=== PATIENT | female | born 1940 | race Caucasian/White ===

== ENCOUNTER 2017-12-23 10:13 | Inpatient (IN) | payer MEDICARE ==
[~2017-12-23] VITALS: Ht 165.1 cm; Wt 93.0 kg
[2017-12-23 10:44] LABS: BASOPHILS % 0.4 % (0.0-1.0); EOSINOPHILS # (AUTO) 0.1 (0.0-0.4); EOSINOPHILS % 1.2 % (0.0-6.0); HEMATOCRIT 42.8 % (34.2-44.1); HEMOGLOBIN 14.2 g/dL (12.0-16.0); LYMPHOCYTES # (AUTO) 1.5 (1.0-3.2); LYMPHOCYTES % 16.1 % (18.0-39.1); MEAN CORPUSCULAR HGB CONC 33.2 g/dL (31-35); MEAN CORPUSCULAR VOLUME 90.3 fL (81-99); MONOCYTES # (AUTO) 0.6 (0.2-0.8); MONOCYTES % 6.5 % (4.4-11.3); NEUTROPHILS # (AUTO) 7.2 (2.1-6.9); NEUTROPHILS % 75.4 % (38.7-80.0); PLATELET COUNT 221 x10e3/uL (140-360); RED BLOOD COUNT 4.74 x10e6/uL (3.6-5.1); RED CELL DISTRIBUTION WIDTH 12.8 % (11.7-14.4)
--- NOTE | 2017-12-23 11:02 | Diagnostic Imaging Report ---
PROCEDURE: X-RAY CHEST, TWO VIEWS COMPARISON: None. INDICATIONS: WEAKNESS IN LEGS, SHORTNESS OF BREATH, PNEUMONIA FINDINGS: The lungs are well-inflated. There are patchy consolidations in the lingula and right midlung. No pleural effusion or pneumothorax. Normal heart size. Tortuosity and atherosclerotic calcification of the thoracic aorta. No overt pulmonary edema. No acute osseous abnormality. CONCLUSION: Patchy consolidation suggestive of multifocal pneumonia involving the right midlung and lingula. Followup chest radiograph in 8 weeks is suggested to document resolution. Dictated by: Bin Eller M.D. on 12/23/2017 at 11:05 Electronically approved by: Bin Eller M.D. on 12/23/2017 at 11:05
[2017-12-23 11:05] LABS: B-TYPE NATRIURETIC PEPTIDE2 54.5 pg/mL (0-100)
[2017-12-23 11:08] LABS: ALANINE AMINOTRANSFERASE 18 IU/L (0-55); ALBUMIN 3.1 g/dL (3.5-5.0); ALBUMIN/GLOBULIN RATIO 0.7 (0.8-2.0); ALKALINE PHOSPHATASE 54 IU/L (40-150); ANION GAP 13.6 mmol/L (8-16); BLOOD UREA NITROGEN 15 mg/dL (7-26); BUN/CREATININE RATIO 13 (6-25); CALCIUM 9.6 mg/dL (8.4-10.2); CARBON DIOXIDE 30 mmol/L (22-29); CHLORIDE 97 mmol/L (98-107); CREATINE KINASE 32 IU/L (29-168); EST GLOMERULAR FILTRATION RATE 44 ML/MIN (60-); GLUCOSE 160 mg/dL (74-118); POTASSIUM 3.6 mmol/L (3.5-5.1); SODIUM 137 mmol/L (136-145)
[2017-12-23] MEDS ORDERED: CEFTRIAXONE SOD 1 GM VIAL IV SCH (12:30)
--- OUTSIDE RECORDS SUMMARY | 2017-12-23 12:40 | XMS REPORT ---
Author [facility] Address Unknown Phone Unavailable Care Team Providers Care Observer [employer] Name Role Phone DIANA PHILIP Unavailable Unavailable Problems This patient has no known problems. Allergies, Adverse Reactions, Alerts This patient has no known allergies or adverse reactions. Medications This patient has no known medications. Results Test Description Test Time Test Comments Text Results Atomic Results Result Comments CHEST 2 VIEWS [place] [id number] Patient Name: ROMINA REDDY MR #: [id number] : 1940 Age/Sex: 77/F Req # : [id number] Adm Physician: Ordered by: DIANA PHILIP MD Report #: [id number] Location: ER Room/Bed: Procedure: [id number] DX/CHEST 2 VIEWS Exam Date: 12/23/17 Exam Time : 1050 REPORT STATUS: Signed PROCEDURE: X-RAY CHEST, TWO VIEWS COMPARISON: None. INDICATIONS: WEAKNESS IN LEGS, SHORTNESS OF BREATH, PNEUMONIA FINDINGS: The lungs are well-inflated. There are patchy consolidations in the lingula and right midlung. No pleural effusion or pneumothorax. Normal heart size. Tortuosity and atherosclerotic calcification of the thoracic aorta. No overt pulmonary edema. No acute osseous abnormality. CONCLUSION: Patchy consolidation suggestive of multifocal pneumonia involving the right midlung and lingula. Followup chest radiograph in 8 weeks is suggested to document resolution. Dictated by: Ramnaa Eller M.D. on 12/23/2017 at 11:05 Electronically approved by: Ramana Eller M.D. on 12/23/2017 at 11:05 Dictated By : RAMANA ELLER MD [id number] Transcribed By: DONAL on 12/23/17 1105 COPY TO: DIANA PHILIP MD
[2017-12-23] MEDS: AZITHROMYCIN 500MG/SOD CHL 0.9% 250ML BAG IV SCH (13:10)
[2017-12-23] MEDS: SODIUM CHLORIDE 0.9% 1000ML 1,000 ML IV SCH ×2 (13:10→21:21)
--- NOTE | 2017-12-23 15:20 | Diagnostic Imaging Report ---
PROCEDURE:CT CHEST WITH CONTRAST COMPARISON:None. INDICATIONS:SHORTNESS OF BREATH. PNEUMONIA. R/O PE TECHNIQUE: Axial CT images of the chest were obtained after the intravenous administration of 63 cc of nonionic contrast. Coronal and sagittal reformations were made available for review. RADIATION DOSE: Total DLP: 474.34 mGy*cm Estimated effective dose: (DLP x 0.014 x size factor) mSv FINDINGS: Lungs: Multifocal infiltrates or tingling in the left lower lobe consistent with pneumonia. There is baseline pulmonary hyperinflation consistent with small airways disease. No intraluminal filling defects in the airways. Pleura:No pleural effusion or pneumothorax. Mediastinum:No filling defects in pulmonary arteries. The aorta is normal in diameter without evidence of dissection. The heart is mildly enlarged. No pericardial effusion. A small hiatal hernia is present. Lymph nodes: No enlarged axillary or supraclavicular lymph nodes. Mediastinal and hilar lymph nodes are mildly prominent, measuring up to 2.2 x 2.0 cm. Upper abdomen: No mass in the visualized portions. Musculoskeletal:There is height loss of the T6 vertebral body of approximately 33%. Spinal canal is widely patent. There are no lytic or blastic lesions. CONCLUSION: 1. Multifocal pulmonary infiltrates consistent with pneumonia. Prominent mediastinal lymph nodes are likely reactive. 2. No evidence of pulmonary embolus or aortic dissection. 3. Age-indeterminate compression fracture of T6. 4. Small hiatal hernia. Dictated by: Suleman Cabrera M.D. on 12/23/2017 at 15:22 Electronically approved by: Suleman Cabrera M.D. on 12/23/2017 at 15:22
[2017-12-23] MEDS ORDERED: HYDRALAZINE HCL 20 MG/ML VIAL IV PRN (17:30)
[2017-12-23] MEDS: ENOXAPARIN SOD INJ 40 MG/0.4 ML SYR SC SCH (17:45)
[2017-12-23] MEDS: BENZONATATE 100 MG CAP PO SCH ×2 (17:45→20:10)
[2017-12-23 18:00] VITALS: BP 135/60
[2017-12-23] MEDS ORDERED: VITAMIN B COMP1 EACH PO (18:45)
[2017-12-23] MEDS ORDERED: FLUTICASONE PRO16 GM (18:45)
[2017-12-23] MEDS ORDERED: VENLAFAXINE HCL75 MG PO (18:45)
[2017-12-23] MEDS ORDERED: AMLODIPINE BESYL5 MG PO (18:45)
[2017-12-23] MEDS ORDERED: GABAPENTIN100 MG PO (18:45)
[2017-12-23] MEDS ORDERED: MONTELUKAST SOD10 MG PO (18:45)
[2017-12-23] MEDS ORDERED: CARVEDILOL12.5 MG PO (18:45)
[2017-12-23] MEDS ORDERED: ERGOCALCIF8000 UNIT/ PO (18:45)
[2017-12-23] MEDS ORDERED: VENTOLIN HFA18 GM (18:45)
[2017-12-23 19:13] VITALS: BP 135/60
[2017-12-23 19:35] VITALS: BP 136/59
[2017-12-23 21:43] VITALS: BP 136/59
[2017-12-24] VITALS (7 sets, daily range): BP systolic 116–142; BP diastolic 53–69
[2017-12-24] MEDS: ACETAMINOPHEN 325 MG TAB PO PRN (00:22)
[2017-12-24 07:49] LABS: ANION GAP 10.8 mmol/L (8-16); BLOOD UREA NITROGEN 13 mg/dL (7-26); BUN/CREATININE RATIO 15 (6-25); CALCIUM 9.2 mg/dL (8.4-10.2); CARBON DIOXIDE 31 mmol/L (22-29); CHLORIDE 104 mmol/L (98-107); CHOL/HDL RATIO 4.7 (3.0-3.6); CHOLESTEROL 173 MD/DL (0-199); CREATININE, SERUM 0.87 mg/dL (0.57-1.11); EST GLOMERULAR FILTRATION RATE > 60 ML/MIN (60-); GLUCOSE 121 mg/dL (74-118); HDL CHOLESTEROL 37 MG/DL (40-60); LDL CHOLESTEROL 116 MG/DL (60-130); POTASSIUM 3.8 mmol/L (3.5-5.1); SODIUM 142 mmol/L (136-145); TRIGLYCERIDES 101 MG/DL (0-149)
[2017-12-24] MEDS: BENZONATATE 100 MG CAP PO SCH (08:55)
[2017-12-24] MEDS ORDERED: CEFTRIAXONE SOD 1 GM VIAL IV SCH (09:00)
[2017-12-24] MEDS: AZITHROMYCIN 500MG/SOD CHL 0.9% 250ML BAG IV SCH (11:36)
[2017-12-24] MEDS ORDERED: ALBUTEROL/IPRATROPIUM 3 ML NEB NEB SCH (14:00)
[2017-12-24] MEDS: ACETAMINOPHEN/CODEINE 300MG - 30MG TAB PO PRN ×2 (14:16→21:46)
[2017-12-24] MEDS: PIPER-TAZ 3.375 GM 100 ML IV SCH ×2 (14:50→21:09)
[2017-12-24] MEDS: ALBUTEROL/IPRATROPIUM 3 ML NEB NEB SCH ×2 (15:00→22:25)
[2017-12-24] MEDS: ENOXAPARIN SOD INJ 40 MG/0.4 ML SYR SC SCH (16:20)
[2017-12-24] MEDS ORDERED: SODIUM CHLORIDE 0.9% 250ML 250 ML ONE (17:42)
[2017-12-24] MEDS: GABAPENTIN 100 MG CAP PO SCH (20:40)
[2017-12-24] MEDS: MONTELUKAST SODIUM 10 MG TAB PO SCH (20:41)
[2017-12-24] MEDS: BUDESONIDE 0.5MG/2 ML NEB INH SCH (22:25)
[2017-12-25] VITALS (9 sets, daily range): BP systolic 116–188; BP diastolic 52–82
[2017-12-25] MEDS: ACETAMINOPHEN 325 MG TAB PO PRN (04:09)
[2017-12-25] MEDS: PIPER-TAZ 3.375 GM 100 ML IV SCH ×3 (05:30→21:22)
[2017-12-25] MEDS: ALBUTEROL/IPRATROPIUM 3 ML NEB NEB SCH ×3 (06:40→23:25)
[2017-12-25] MEDS: BUDESONIDE 0.5MG/2 ML NEB INH SCH ×2 (07:00→23:25)
[2017-12-25] MEDS: AMLODIPINE BESYLATE 5 MG TAB PO SCH (08:16)
[2017-12-25] MEDS: VENLAFAXINE HCL 75 MG TAB PO SCH (08:16)
[2017-12-25] MEDS: AZITHROMYCIN 500MG/SOD CHL 0.9% 250ML BAG IV SCH (11:53)
--- NOTE | 2017-12-25 15:19 | Consultation ---
DATE OF CONSULTATION: December 24, 2017 PULMONARY CONSULTATION REASON FOR CONSULT: Recurrent episodes of pneumonia. HPI: Ms. Irving is a 77-year-old female who presented to the emergency room with the complaints of shortness of breath, cough, and wheezing. She reports that these episodes have been recurrent and have happened a couple of times in last 2 to 3 months. She denies any history of asthma. She is a lifelong nonsmoker. She reports that she feels better with nebulizer, but the effect does not last long. She denies any allergies as well. REVIEW OF SYSTEMS GENERAL: Denies any fever or chills. HEAD: Denies any head trauma. ENT: Denies any earache. CVS: Denies any chest pain. RESPIRATORY: Shortness of breath. GI: Denies any nausea or vomiting. The rest of the review of systems is negative except as in HPI. PAST MEDICAL HISTORY: Hypertension. PAST SURGICAL HISTORY: Hysterectomy and appendectomy. FAMILY AND SOCIAL HISTORY: She does not smoke, does not drink. PHYSICAL EXAMINATION VITALS: Temperature 99.8, pulse of 83, blood pressure 125/73, respiratory rate of 18, O2 sat 94%, and T-max of 100.7. HEENT: Head atraumatic and normocephalic. Pupils are reactive. NECK: Supple. CHEST: Reduced air entry, crackles bilaterally. Occasional wheezing. HEART: S1, S2 audible. No murmurs, gallops, or rub. ABDOMEN: Soft, nontender, and nondistended. EXTREMITIES: No clubbing, cyanosis, or edema. NEUROLOGIC: Awake and alert. LABS: White count of 9000, hemoglobin 14.2, and platelets 221,000. Chemistries within normal limits. Creatinine was 1.2 yesterday, it is 0.87 today. Bicarbonate was 30 yesterday, it is [address] of the chest: I have reviewed the images. It is showing evidence of multifocal infiltrates and an area of consolidation in the left lower lobe. ASSESSMENT: Ms. Irving is a 77-year-old female with recurrent episodes of cough and wheezing and has been on Symbicort in the past, also has tried Breo. I am unsure how frequently and how regularly she has used that. There is no previous CT to compare. This CT shows evidence of multiple areas of consolidation, small. There is a larger area of consolidation on the base. At this point, it seems like it is pneumonia; however, if previously she had similar episode, then it can be organizing pneumonia. PLAN: At this point, I will start the patient on IV Zosyn and nebulizer treatment with DuoNeb q.8 h. I will continue the patient on azithromycin. Also start the patient on Pulmicort nebs as well. On discharge, she will need following and a repeat CAT scan to see if the areas of consolidation are resolving or not. If it is not, then she may need a steroid course for organizing pneumonia. At this point, I will hold off on the steroids unless she starts having worsening wheezing and cough. Then, I will start the patient on steroid to treat the reactive airways. Thank you for this consult. Job#: [id number] CF
[2017-12-25] MEDS: ENOXAPARIN SOD INJ 40 MG/0.4 ML SYR SC SCH (17:13)
[2017-12-25] MEDS: MONTELUKAST SODIUM 10 MG TAB PO SCH (21:22)
[2017-12-25] MEDS: GABAPENTIN 100 MG CAP PO SCH (21:22)
[2017-12-26] VITALS: BP 140/66
[2017-12-26] MEDS: ACETAMINOPHEN 325 MG TAB PO PRN (00:35)
[2017-12-26] MEDS: PIPER-TAZ 3.375 GM 100 ML IV SCH (05:25)
[2017-12-26 05:30] VITALS: BP 136/67
[2017-12-26] MEDS: BUDESONIDE 0.5MG/2 ML NEB INH SCH (07:10)
[2017-12-26] MEDS: ALBUTEROL/IPRATROPIUM 3 ML NEB NEB SCH (07:10)
[2017-12-26 07:53] VITALS: BP 152/82
[2017-12-26] MEDS: AMLODIPINE BESYLATE 5 MG TAB PO SCH (08:10)
[2017-12-26] MEDS: VENLAFAXINE HCL 75 MG TAB PO SCH (08:10)
[2017-12-26 08:57] VITALS: BP 152/82
[2017-12-26 11:50] VITALS: BP 151/67
[2017-12-26] MEDS ORDERED: DOXYCYCLINE HY100 MG PO (11:56)
[2017-12-26] MEDS ORDERED: AUGMENTIN 875-1 EACH PO (11:57)
--- NOTE | 2017-12-26 14:53 | Discharge Summary ---
PRIMARY CARE DOCTOR: Susan Le MD, with [facility]ani[facility]ity[facility]. FINAL DIAGNOSIS: Multifocal pneumonia. SECONDARY DIAGNOSES 1. Hypoxia, resolving. 2. Possible obesity-hypoventilation syndrome. 3. Acute renal failure, resolved. 4. Hypertension, stable. 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 PROCEDURES/STUDIES PERFORMED: Chest CT. HISTORY: Per H and P. HOSPITAL COURSE: The patient initially was put on Rocephin and azithromycin. Subsequently, the Rocephin was switched to Zosyn. The patient responded better. Hypoxia is resolving. She does not qualify for home oxygen. She received Lovenox for DVT prophylaxis. The patient will need outpatient pulmonary evaluation. This was conveyed to her primary care doctor. Given her Levaquin allergy, the patient will be going home on Augmentin and doxycycline for another week. The patient was seen and examined today. It took 32 minutes total to discharge this patient. CONDITION ON DISCHARGE: Improved. DISCHARGE MEDICATIONS: Please see medication reconciliation form. MARTHA JUÁREZ M.D. Job#: [id number] cc:SUSAN LE M.D.
== END 2017-12-26 13:00 | disposition home or self-care (01) | DRG 194 ==
LOC: ER 10:13 → ERHOLD 12:38 → MED/SURG3 15:15
PROVIDERS: ADMIT Internal Medicine; ATTEND Internal Medicine
DX: J18.9 Pneumonia, unspecified organism (principal); N17.9 Acute kidney failure, unspecified; E66.2 Morbid (severe) obesity with alveolar hypoventilation; R09.02 Hypoxemia; Z68.34 Body mass index [BMI] 34.0-34.9, adult; I10 Essential (primary) hypertension; J45.909 Unspecified asthma, uncomplicated
CPT/HCPCS: 36415; 71046; 71260; 80048; 80053; 80061; 82550; 82553; 83605; 83880; 84484; 85025; 85379; 87040; 93005; 94640; 99284; J0456; J0696; J1650; J2543; J7030; J7050

== ENCOUNTER 2020-02-01 13:11 | Emergency (ER) | payer MEDICARE ==
[~2020-02-01] VITALS: Ht 165.1 cm; Wt 93.0 kg
[~2020-02-01 13:11] MED LIST: AMLODIPINE BESYL5 MG PO; AUGMENTIN 875-1 EACH PO; CARVEDILOL12.5 MG PO; DOXYCYCLINE HY100 MG PO; ERGOCALCIF8000 UNIT/ PO; FLUTICASONE PRO16 GM; GABAPENTIN100 MG PO; MONTELUKAST SOD10 MG PO; VENLAFAXINE HCL75 MG PO; VENTOLIN HFA18 GM; VITAMIN B COMP1 EACH PO
[2020-02-01 14:16] LABS: BASOPHILS # (AUTO) 0.1 (0.0-0.1); BASOPHILS % 1.3 % (0.0-1.0); EOSINOPHILS # (AUTO) 0.2 (0.0-0.4); EOSINOPHILS % 2.7 % (0.0-6.0); HEMATOCRIT 37.7 % (34.2-44.1); HEMOGLOBIN 10.6 g/dL (12.0-16.0); LYMPHOCYTES # (AUTO) 2.3 (1.0-3.2); LYMPHOCYTES % 36.3 % (18.0-39.1); MEAN CORPUSCULAR HEMOGLOBIN 22.4 pg (28-32); MEAN CORPUSCULAR HGB CONC 28.1 g/dL (31-35); MEAN CORPUSCULAR VOLUME 79.7 fL (81-99); MONOCYTES # (AUTO) 0.6 (0.2-0.8); MONOCYTES % 8.8 % (4.4-11.3); NEUTROPHILS # (AUTO) 3.1 (2.1-6.9); NEUTROPHILS % 50.6 % (38.7-80.0); PLATELET COUNT 403 x10e3/uL (140-360); RED BLOOD COUNT 4.73 x10e6/uL (3.6-5.1); RED CELL DISTRIBUTION WIDTH 18.5 % (11.7-14.4)
[2020-02-01 14:28] LABS: CLARITY,URINE CLOUDY (CLEAR); COLOR,URINE YELLOW (YELLOW); KETONES,URINE NEGATIVE (NEGATIVE); LEUKOCYTE ESTERASE ,URINE SMALL (NEGATIVE); NITRITE,URINE NEGATIVE (NEGATIVE); PROTEIN,URINE DIPSTICK NEGATIVE (NEGATIVE); URINE UROBILINOGEN 0.2 mg/dL (0.2 - 1)
[2020-02-01 14:29] LABS: BILIRUBIN,URINE NEGATIVE (NEGATIVE)
[2020-02-01 14:32] LABS: ALBUMIN 3.8 g/dL (3.5-5.0); ANION GAP 14.6 mmol/L (8-16); CALCIUM 9.4 mg/dL (8.4-10.2); CREATININE, SERUM 1.61 mg/dL (0.57-1.11); POTASSIUM 3.6 mmol/L (3.5-5.1)
[2020-02-01 14:43] LABS: BACTERIA,URINE MANY /HPF; WBC,URINE (MAN) >50 /HPF (0-5)
[2020-02-01 14:44] LABS: EPITHELIAL CELLS,URINE MODERATE /LPF
[2020-02-01] MEDS ORDERED: ULTRAM50 MG PO (16:58)
--- NOTE | 2020-02-19 15:07 | Emergency Department Note ---
History of Present Illnes History of Present Illness Chief Complaint: General Medicine Complaints History of Present Illness This is a 79 year old female sent to the ED by primary care physician for anemia, patient denies any source of bleeding, denies any complaints. Historian: Patient Arrival Mode: Car Onset (how long ago): unknown Severity: mild Onset quality: unable to specify Progression: unable to specify Chronicity: recurrent Past Medical/Family History Physician Review I have reviewed the patient's past medical and family history. Any updates have been documented here. Past Medical History Recent Fever: No Clinical Suspicion of Infectio: No New/Unexplained Change in Ment: No Past Medical History: Hypertension Other Medical History: NEUROPATHY Past Surgical History: Hysterectomy, T&A Other Surgery: BLADDER MESH REMOVAL Social History Smoking Cessation: Former smoker Counseling Performed: No Alcohol Use: None Any Illegal Drug Use: No TB Exposure/Symptoms: No Physically hurt or threatened: No Other Last Tetanus: UNK Last Flu: Y Last Pneumovax: Y Review of Systems Review of Systems Constitutional: Reports no symptoms EENTM: Reports no symptoms Cardiovascular: Reports no symptoms Respiratory: Reports no symptoms Gastrointestinal: Reports no symptoms Genitourinary: Reports no symptoms Musculoskeletal: Reports no symptoms Integumentary: Reports no symptoms Neurological: Reports no symptoms Psychological: Reports no symptoms Endocrine: Reports no symptoms Hematological/Lymphatic: Reports no symptoms Physical Exam Related Data Allergies: Coded Allergies: levofloxacin (Verified Allergy, Severe, 12/23/17) sulfamethoxazole (Verified Allergy, Severe, 12/23/17) trimethoprim (Verified Allergy, Severe, 12/23/17) Triage Vital Signs Vital Signs Date Time Temp Pulse Resp B/P (MAP) Pulse Ox O2 Delivery O2 Flow Rate FiO2 02/01/20 13:14 98.7 80 16 134/70 100 Vital signs reviewed: Yes Physical Exam CONSTITUTIONAL Constitutional: Present well-developed, Present well-nourished HENT HENT: Present normocephalic, Present atraumatic, Present oropharynx clear/moist, Present nose normal HENT L/R: Present left ext ear normal, Present right ext ear normal EYES Eyes: Reports PERRL, Reports conjunctivae normal NECK Neck: Present ROM normal PULMONARY Pulmonary: Present effort normal, Present breath sounds normal CARDIOVASCULAR Cardiovascular: Present regular rhythm, Present heart sounds normal, Present capillary refill normal, Present normal rate GASTROINTESTINAL Abdominal: Present soft, Present nontender, Present bowel sounds normal GENITOURINARY Genitourinary: Present exam deferred SKIN Skin: Present warm, Present dry MUSCULOSKELETAL Musculoskeletal: Present ROM normal NEUROLOGICAL Neurological: Present alert, Present oriented x 3, Present no gross motor or sensory deficits PSYCHOLOGICAL Psychological: Present mood/affect normal, Present judgement normal Results Laboratory Result Diagram: 02/01/20 1320 02/01/20 1320 Lab results reviewed: Yes Assessment & Plan Medical Decision Making MDM 79-year-old well-appearing female arrived to the ED at request of primary care physician for anemia and need transfusion. Patient's hemoglobin in the emergency department reviewed at around 10.0, no indications for transfusion at this time. Patient otherwise hemodynamically stable recommended outpatient follow-up with hematology to do iron studies and find other causes of low hemoglobin. Assessment & Plan Final Impression: (1) Anemia Depart Disposition: HOME, SELF-CARE Last Vital Signs Date Time Temp Pulse Resp B/P (MAP) Pulse Ox O2 Delivery O2 Flow Rate FiO2 02/01/20 13:14 98.7 80 16 134/70 100 Home Meds Active Scripts Tramadol Hcl (ULTRAM) 50 Mg Tablet, 50 MG PO Q6HR PRN for Mild Pain (1-3) or Fever>100.8, #10 TAB Prov:JEREMIAH LANCE, 02/01/20 Reported Medications Amoxicillin/Potassium Clav (AUGMENTIN 875-125 TABLET) 1 Each Tablet, 875 MG PO BID for 7 Days, #30 TAB 12/26/17 Doxycycline Hyclate (DOXYCYCLINE HYCLATE) 100 Mg Capsule, 100 MG PO BID for 7 Days, CAP 12/26/17 Fluticasone Propionate (FLUTICASONE PROPIONATE) 16 Gm [place].susp, NA DAILY 12/23/17 Albuterol Sulfate (VENTOLIN HFA) 18 Gm Hfa.aer.ad, NA Q6H PRN for wheezing; shortness of breath 2 puffs into the lungs every 6 hours as needed 12/23/17 Vitamin B Complex (VITAMIN B COMPLEX) 1 Each Capsule, PO DAILY 12/23/17 Venlafaxine Hcl (VENLAFAXINE HCL) 75 Mg Tab, 75 MG PO DAILY, #30 TAB 12/23/17 Montelukast Sodium (MONTELUKAST SODIUM) 10 Mg Tablet, 10 MG PO HS, #30 TAB 12/23/17 Gabapentin (GABAPENTIN) 100 Mg Capsule, 200 MG PO HS 12/23/17 Ergocalciferol (Vitamin D2) (ERGOCALCIFEROL) 8,000 Unit/1 Ml Drops, 07143 UNITS PO ONCE WEEKLY 12/23/17 Carvedilol (CARVEDILOL) 12.5 Mg Tablet, 25 MG PO BID, #60 TAB 12/23/17 Amlodipine Besylate (AMLODIPINE BESYLATE) 5 Mg Tablet, 5 MG PO DAILY, #30 TAB 12/23/17 JEREMIAH LANCE, Feb 19, 2020 15:07
== END 2020-02-01 17:17 | disposition home or self-care (01) ==
LOC: ER 13:21
DX: D64.9 Anemia, unspecified (principal); I10 Essential (primary) hypertension; G62.9 Polyneuropathy, unspecified
CPT/HCPCS: 36415; 80053; 81001; 85025; 99282

== ENCOUNTER 2024-10-29 12:09 | Inpatient (IN) | payer MEDICARE ==
[~2024-10-29] VITALS: Ht 165.1 cm; Wt 88.5 kg
[2024-10-29] VITALS (9 sets, daily range): BP systolic 136–162; BP diastolic 70–85; PULSE 55–65; RESP 16–20; TEMP 97.2–98.2; O2SAT 91–97
[~2024-10-29 12:09] MED LIST changes: +ULTRAM50 MG PO
[2024-10-29 12:42] LABS: BASOPHILS # (AUTO) 0.1 (0.0-0.1); BASOPHILS % 1.1 % (0.0-1.0); EOSINOPHILS # (AUTO) 0.3 (0.0-0.4); EOSINOPHILS % 5.7 % (0.0-6.0); HEMATOCRIT 30.9 % (34.2-44.1); HEMOGLOBIN 9.1 g/dL (12.0-16.0); LYMPHOCYTES # (AUTO) 1.4 (1.0-3.2); LYMPHOCYTES % 24.2 % (18.0-39.1); MEAN CORPUSCULAR HEMOGLOBIN 25.7 pg (28-32); MEAN CORPUSCULAR HGB CONC 29.4 g/dL (31-35); MEAN CORPUSCULAR VOLUME 87.3 fL (81-99); MONOCYTES # (AUTO) 0.6 (0.2-0.8); MONOCYTES % 10.1 % (4.4-11.3); NEUTROPHILS # (AUTO) 3.3 (2.1-6.9); NEUTROPHILS % 58.5 % (38.7-80.0); PLATELET COUNT 290 x10e3/uL (140-360); RED BLOOD COUNT 3.54 x10e6/uL (3.6-5.1); RED CELL DISTRIBUTION WIDTH 14.6 % (11.7-14.4); WHITE BLOOD COUNT 5.57 x10e3/uL (4.8-10.8)
[2024-10-29 13:05] LABS: ALBUMIN 3.4 g/dL (3.5-5.0); ANION GAP 14.1 mmol/L (8-16); BILIRUBIN,TOTAL 0.5 mg/dL (0.2-1.2); CALCIUM 8.9 mg/dL (8.4-10.2); CREATININE, SERUM 1.11 mg/dL (0.57-1.11); POTASSIUM 4.1 mmol/L (3.5-5.1); TOTAL PROTEIN 6.7 g/dL (6.5-8.1)
[2024-10-29 13:08] LABS: INR 1.51
[2024-10-29 13:09] LABS: CORONAVIRUS COVID-19 AG NEGATIVE (NEGATIVE); INFLUENZA A AG NEGATIVE (NEGATIVE); INFLUENZA B AG NEGATIVE (NEGATIVE); PARTIAL THROMBOPLASTIN TIME 33.9 seconds (23.8-35.5)
[2024-10-29 13:11] LABS: TROPONIN I 0.011 ng/mL (0-0.300)
[2024-10-29] MEDS ORDERED: IOPAMIDOL 370 MG/ML 100 ML INFUS..BTL INJ ONE (13:23)
[2024-10-29] MEDS: SODIUM CHLORIDE 0.9% 1000ML 1,000 ML IV STA (13:30)
[2024-10-29] MEDS ORDERED: Morphine 2mg Syringe 2 MG/ML SYR IV PRN (14:45)
[2024-10-29] MEDS ORDERED: POTASSIUM CHLORIDE 20 MEQ TAB CR PO PRN (15:15)
[2024-10-29] MEDS ORDERED: BENZONATATE 100 MG CAP PO PRN (15:15)
[2024-10-29] MEDS ORDERED: DEXTROSE 50% SYRINGE 50 ML IV PRN (15:15)
[2024-10-29] MEDS ORDERED: ONDANSETRON HCL INJ 2MG/ML 2ML 2 MG/ML VIAL IV PRN (15:15)
[2024-10-29] MEDS ORDERED: DOCUSATE SODIUM 100 MG CAP PO PRN (15:15)
[2024-10-29] MEDS ORDERED: DIPHENHYDRAMINE HCL 25 MG CAP PO PRN (15:15)
[2024-10-29] MEDS ORDERED: LIDOCAINE 4% PATCH TP PRN (15:15)
[2024-10-29] MEDS ORDERED: SIMETHICONE 80 MG CHEW PO PRN (15:15)
[2024-10-29] MEDS ORDERED: ACETAMINOPHEN 325 MG TAB PO PRN (15:15)
[2024-10-29] MEDS ORDERED: ALBUTEROL/IPRATROPIUM 3 ML NEB NEB PRN (15:15)
[2024-10-29] MEDS ORDERED: HYDRALAZINE HCL 20 MG/ML VIAL IV PRN ×2 (15:15→17:15)
[2024-10-29] MEDS: BUMETANIDE INJ 0.25MG/ML 4ML VIAL IV ONE (15:28)
[2024-10-29] MEDS: NIFEDIPINE CR 30 MG TAB PO SCH (16:30)
[2024-10-29] MEDS ORDERED: MELATONIN 5 MG TABLET PO PRN (21:00)
[2024-10-29] MEDS: FUROSEMIDE INJ 10 MG/ML 4 ML VIAL IV SCH (21:14)
[2024-10-29] MEDS: APIXABAN 5 MG TABLET PO SCH (21:14)
[2024-10-29 23:21] LABS: TROPONIN I 0.01 ng/mL (0-0.300)
[2024-10-30] VITALS (9 sets, daily range): BP systolic 108–122; BP diastolic 50–59; PULSE 60–67; RESP 17–20; TEMP 97.8–98.2; O2SAT 92–100
[2024-10-30 05:33] LABS: BASOPHILS # (AUTO) 0.1 (0.0-0.1); BASOPHILS % 0.9 % (0.0-1.0); EOSINOPHILS # (AUTO) 0.3 (0.0-0.4); EOSINOPHILS % 5.5 % (0.0-6.0); HEMATOCRIT 26.7 % (34.2-44.1); HEMOGLOBIN 8.2 g/dL (12.0-16.0); LYMPHOCYTES # (AUTO) 1.7 (1.0-3.2); MEAN CORPUSCULAR HEMOGLOBIN 26.2 pg (28-32); MEAN CORPUSCULAR HGB CONC 30.7 g/dL (31-35); MEAN CORPUSCULAR VOLUME 85.3 fL (81-99); MONOCYTES # (AUTO) 0.7 (0.2-0.8); MONOCYTES % 13.1 % (4.4-11.3); NEUTROPHILS # (AUTO) 2.6 (2.1-6.9); NEUTROPHILS % 48.3 % (38.7-80.0); PLATELET COUNT 272 x10e3/uL (140-360); RED BLOOD COUNT 3.13 x10e6/uL (3.6-5.1); RED CELL DISTRIBUTION WIDTH 14.8 % (11.7-14.4); WHITE BLOOD COUNT 5.43 x10e3/uL (4.8-10.8)
[2024-10-30 05:53] LABS: ALBUMIN 3.1 g/dL (3.5-5.0); ALBUMIN/GLOBULIN RATIO 1.1 (0.8-2.0); ANION GAP 13.7 mmol/L (8-16); BILIRUBIN,TOTAL 0.5 mg/dL (0.2-1.2); CALCIUM 8.6 mg/dL (8.4-10.2); CHOL/HDL RATIO 2.8 (3.0-3.6); CREATININE, SERUM 1.03 mg/dL (0.57-1.11); MAGNESIUM 1.8 MG/DL (1.3-2.1); POTASSIUM 3.7 mmol/L (3.5-5.1)
[2024-10-30 06:00] LABS: TROPONIN I 0.014 ng/mL (0-0.300)
[2024-10-30 06:14] LABS: THYROID STIMULATING HORMONE 1.402 uIU/mL (0.350-4.940)
[2024-10-30] MEDS ORDERED: ELIQUIS5 MG PO (06:43)
[2024-10-30] MEDS ORDERED: CITALOPRAM HBR20 MG PO (06:43)
[2024-10-30] MEDS ORDERED: ATORVASTATIN CA40 MG PO (06:43)
[2024-10-30] MEDS ORDERED: PROPRANOLOL HCL80 MG PO (06:43)
[2024-10-30] MEDS ORDERED: OLMESARTAN MEDO40 MG PO (06:43)
[2024-10-30] MEDS ORDERED: BUPRENORPHN-NA1 EACH PO (06:43)
[2024-10-30] MEDS ORDERED: FUROSEMIDE20 MG PO (06:43)
[2024-10-30] MEDS ORDERED: PANTOPRAZOLE SO40 MG PO (06:43)
[2024-10-30] MEDS: ASPIRIN 81 MG ENTERIC COATED PO SCH (09:40)
[2024-10-30] MEDS: OLMESARTAN 20 MG TAB PO SCH (09:41)
[2024-10-30] MEDS: PANTOPRAZOLE SOD 40 MG TABEC PO SCH (09:42)
[2024-10-30 15:43] LABS: % IRON SATURATION 7 % (15-50); IRON 29 ug/dL (50-170); TOTAL IRON BINDING CAPACITY 413 ug/dL (261-478); TRANSFERRIN 295 mg/dL (180-382)
[2024-10-30 15:59] LABS: FOLATE 17.1 ng/mL (7.0-15.4)
[2024-10-30] MEDS ORDERED: ACETAMINOPHEN650 M2 PO (16:10)
[2024-10-30] MEDS ORDERED: FAMOTIDINE20 MG PO (16:10)
[2024-10-30] MEDS ORDERED: DILT-XR180 MG PO (16:10)
[2024-10-30] MEDS ORDERED: LORATADINE10 MG PO (16:10)
[2024-10-30] MEDS ORDERED: AMITRIPTYLINE H75 MG PO (16:10)
[2024-10-30] MEDS ORDERED: ULTRAM 50MG50 MG PO (16:10)
[2024-10-30] MEDS ORDERED: TORSEMIDE5 MG PO (16:10)
[2024-10-30] MEDS ORDERED: TIZANIDINE HCL4 MG PO (16:10)
[2024-10-30] MEDS ORDERED: VITAMIN E400 UNI1 PO (16:22)
[2024-10-30] MEDS ORDERED: VOLTAREN ARTHRI20 GM TP (16:22)
[2024-10-30] MEDS ORDERED: DIAZEPAM5 MG PO (16:22)
[2024-10-30] MEDS ORDERED: MULTI-VITAMIN1 EACH PO (16:22)
[2024-10-30] MEDS: FUROSEMIDE INJ 10 MG/ML 4 ML VIAL IV SCH (18:07)
[2024-10-30] MEDS: HYDROCODONE/APAP 5MG-325MG TAB PO PRN (22:54)
[2024-10-31 04:00] VITALS: BP 116/55; PULSE 66; RESP 18; TEMP 98.1
[2024-10-31 06:41] VITALS: PULSE 74; RESP 20; O2SAT 97
[2024-10-31 06:47] LABS: ALBUMIN 3.1 g/dL (3.5-5.0); ALBUMIN/GLOBULIN RATIO 1.1 (0.8-2.0); ANION GAP 13.7 mmol/L (8-16); BILIRUBIN,TOTAL 0.6 mg/dL (0.2-1.2); CALCIUM 8.9 mg/dL (8.4-10.2); CREATININE, SERUM 1.1 mg/dL (0.57-1.11); POTASSIUM 3.7 mmol/L (3.5-5.1); TOTAL PROTEIN 5.9 g/dL (6.5-8.1)
[2024-10-31 09:37] VITALS: BP 128/52; PULSE 89; RESP 16; TEMP 97.9; O2SAT 93
[2024-10-31] MEDS: CITALOPRAM HYDROBROMIDE 20 MG TAB PO SCH (10:23)
[2024-10-31] MEDS: IRON SUCROSE 100 MG in SODIUM CHLORIDE 0.9% 100 ML IV SCH (10:24)
[2024-10-31] MEDS: CYANOCOBALAMIN 1,000 MCG TAB PO SCH (10:29)
[2024-10-31 12:00] VITALS: BP 115/55; PULSE 82; RESP 16; TEMP 97.8; O2SAT 95
[2024-10-31 16:00] VITALS: BP 133/69; PULSE 99; RESP 17; TEMP 97.9; O2SAT 98
== END 2024-10-31 18:15 | disposition home or self-care (01) | DRG 291 ==
LOC: ER 12:21 → ERHOLD 14:40 → MED/SURG2 17:00
PROVIDERS: ADMIT Internal Medicine; ATTEND Internal Medicine
DX: I11.0 Hypertensive heart disease with heart failure (principal); I50.33 Acute on chronic diastolic (congestive) heart failure; J90 Pleural effusion, not elsewhere classified; I27.22 Pulmonary hypertension due to left heart disease; I35.0 Nonrheumatic aortic (valve) stenosis; R09.02 Hypoxemia; R00.1 Bradycardia, unspecified; E78.5 Hyperlipidemia, unspecified; D64.9 Anemia, unspecified; K21.9 Gastro-esophageal reflux disease without esophagitis; Z71.3 Dietary counseling and surveillance; Z68.32 Body mass index [BMI] 32.0-32.9, adult; Z86.718 Personal history of other venous thrombosis and embolism; Z86.711 Personal history of pulmonary embolism; Z79.01 Long term (current) use of anticoagulants; Z79.899 Other long term (current) drug therapy
CPT/HCPCS: 36415; 71045; 71260; 80053; 80061; 82550; 82607; 82746; 83036; 83540; 83735; 83880; 84100; 84443; 84466; 84484; 85025; 85379; 85610; 85730; 93005; 93306; 93970; 94799; 99284; J1756; J1940; J2470; J7030; J7050; Q9967

== ENCOUNTER 2024-11-21 11:37 | Emergency (ER) | payer MEDICARE ==
[~2024-11-21] VITALS: Ht 165.1 cm; Wt 88.5 kg
[~2024-11-21 11:37] MED LIST changes: +ACETAMINOPHEN650 M2 PO; +AMITRIPTYLINE H75 MG PO; +ATORVASTATIN CA40 MG PO; +BUPRENORPHN-NA1 EACH PO; +CITALOPRAM HBR20 MG PO; +DIAZEPAM5 MG PO; +DILT-XR180 MG PO; +ELIQUIS5 MG PO; +FAMOTIDINE20 MG PO; +FUROSEMIDE20 MG PO; +LORATADINE10 MG PO; +MULTI-VITAMIN1 EACH PO; +OLMESARTAN MEDO40 MG PO; +PANTOPRAZOLE SO40 MG PO; +PROPRANOLOL HCL80 MG PO; +TIZANIDINE HCL4 MG PO; +TORSEMIDE5 MG PO; +ULTRAM 50MG50 MG PO; +VITAMIN E400 UNI1 PO; +VOLTAREN ARTHRI20 GM TP
[2024-11-21 13:14] LABS: BASOPHILS % 0.7 % (0.0-1.0); EOSINOPHILS # (AUTO) 0.2 (0.0-0.4); EOSINOPHILS % 3.7 % (0.0-6.0); HEMATOCRIT 29.6 % (34.2-44.1); HEMOGLOBIN 8.5 g/dL (12.0-16.0); LYMPHOCYTES # (AUTO) 1.3 (1.0-3.2); LYMPHOCYTES % 23.7 % (18.0-39.1); MEAN CORPUSCULAR HEMOGLOBIN 24.7 pg (28-32); MEAN CORPUSCULAR HGB CONC 28.7 g/dL (31-35); MONOCYTES # (AUTO) 0.6 (0.2-0.8); MONOCYTES % 11.4 % (4.4-11.3); NEUTROPHILS # (AUTO) 3.3 (2.1-6.9); NEUTROPHILS % 60.3 % (38.7-80.0); PLATELET COUNT 350 x10e3/uL (140-360); RED BLOOD COUNT 3.44 x10e6/uL (3.6-5.1); RED CELL DISTRIBUTION WIDTH 16.9 % (11.7-14.4); WHITE BLOOD COUNT 5.45 x10e3/uL (4.8-10.8)
[2024-11-21] MEDS: FUROSEMIDE INJ 10 MG/ML 4 ML VIAL IV ONE (13:22)
[2024-11-21 13:45] LABS: ALBUMIN 3.7 g/dL (3.5-5.0); ALBUMIN/GLOBULIN RATIO 1.1 (0.8-2.0); ANION GAP 16.1 mmol/L (8-16); BILIRUBIN,TOTAL 1.1 mg/dL (0.2-1.2); CALCIUM 9.2 mg/dL (8.4-10.2); CREATININE, SERUM 1.25 mg/dL (0.57-1.11); POTASSIUM 4.1 mmol/L (3.5-5.1); TOTAL PROTEIN 7.1 g/dL (6.5-8.1)
[2024-11-21 13:50] LABS: TROPONIN I 0.014 ng/mL (0-0.300)
[2024-11-21 16:44] VITALS: PULSE 57; RESP 18; TEMP 98; O2SAT 100
== END 2024-11-21 16:57 | disposition other institution (70) ==
LOC: ER 12:33
DX: R06.02 Shortness of breath (principal); R09.02 Hypoxemia; I27.20 Pulmonary hypertension, unspecified; I35.0 Nonrheumatic aortic (valve) stenosis; I50.9 Heart failure, unspecified; I10 Essential (primary) hypertension; I25.10 Atherosclerotic heart disease of native coronary artery without angina pectoris; E78.5 Hyperlipidemia, unspecified; G62.9 Polyneuropathy, unspecified; Z86.718 Personal history of other venous thrombosis and embolism
CPT/HCPCS: 36415; 71046; 80053; 83880; 84484; 85025; 93005; 99285; J1940